=== PATIENT | female | born 1990 | race Two or more races ===

== ENCOUNTER 2024-06-17 12:45 | Inpatient (IN) | payer BC ==
[2024-06-17 13:51] VITALS: BMI 36.6
[2024-06-17] MEDS ORDERED: SODIUM CHLORIDE 100 ML IVPB ONE ×2 (13:54→18:31)
[2024-06-17] MEDS ORDERED: AMPICILLIN SODIUM 2 GM VIAL ONE (13:54)
[2024-06-17] MEDS: LACTATED RINGERS SOLUTION 1,000 ML IV SCH (14:05)
[2024-06-17] MEDS: AMPICILLIN - 2 GM in SODIUM CHLORIDE 100 ML IVPB ONE (14:10)
[2024-06-17 14:47] LABS: ABSOLUTE IMMATURE GRANULOCYTES 0.04 x10^3/uL (0.0-0.031); BASOPHILS # 0.02 x10^3/uL (0.01-0.08); EOSINOPHIL % 0.7 % (0.7-5.8); EOSINOPHILS # 0.06 x10^3/uL (0.04-0.36); HEMATOCRIT 38.5 % (34.1-44.9); HEMOGLOBIN 12.9 g/dL (11.2-15.7); MCHC 33.5 g/dl (32.2-35.5); MEAN PLT VOLUME 10.9 fl (9.4-12.3); MONOCYTE # 0.54 x10^3/uL (0.24-0.86); PLATELET COUNT 243 x10^3/uL (182-369); RDW 13.8 % (12.1-16.8); Reticulocyte % 2.09 % (0.5-1.7)
[2024-06-17 14:54] LABS: INR 0.91 (0.83-1.09)
[2024-06-17 14:55] LABS: EPI CELLS 13 /uL (0-25.1); HYALINE CASTS 0 /uL (0-3.1); URINE APPEARANCE CLEAR; URINE BACTERIA 1019 /uL (0-1359); URINE BILIRUBIN NEGATIVE (NEGATIVE); URINE COLOR YELLOW; URINE GLUCOSE (UA) NEGATIVE (NEGATIVE); URINE KETONE NEGATIVE (NEGATIVE); URINE LEUK ESTERASE NEGATIVE (NEGATIVE); URINE NITRITE NEGATIVE (NEGATIVE); URINE PROTEIN NEGATIVE (NEGATIVE); URINE RBC 15 /uL (0-23.9); URINE UROBILINOGEN 0.2 mg/dL (0.2-1.0); URINE WBC 17 /uL (0-25.8)
[2024-06-17 14:56] LABS: ACTIVATED PTT 27.2 SECONDS (25.2-36.5)
[2024-06-17 15:08] LABS: POTASSIUM 4.1 mmol/L (3.5-5.1)
[2024-06-17 15:10] LABS: BLOOD UREA NITROGEN 9.7 mg/dL (7-18); CALCIUM 10.3 mg/dL (8.5-10.1)
[2024-06-17 15:11] LABS: ALBUMIN 2.9 g/dl (3.4-5.0)
[2024-06-17 15:13] LABS: CREATININE 0.5 mg/dL (0.55-1.3); URIC ACID 5.9 mg/dL (2.6-7.2)
[2024-06-17 15:15] LABS: BILIRUBIN,TOTAL 0.4 mg/dL (0.2-1); TOT PROT 6.6 g/dl (6.4-8.2)
[2024-06-17] MEDS ORDERED: OXYTOCIN 30 UNITS in 0.9% NS 30 UNIT/500 ML INFUS.BAG IVPB ONE (15:38)
[2024-06-17] MEDS: OXYTOCIN 30 UNITS in 0.9% NS 30 UNIT/500 ML INFUS.BAG IVPB SCH (15:43)
[2024-06-17 16:10] LABS: CREATININE, URINE RANDOM 51.7 mg/dL (30-150)
[2024-06-17] MEDS ORDERED: NALOXONE HCL 0.4 MG/ML VIAL IVPUSH PRN (17:50)
[2024-06-17] MEDS ORDERED: FENTANYL/BUPIVACAINE/NS/PF - PCEA - 50 ML DISP.SYRIN EP ONE ×2 (17:58→22:45)
[2024-06-17] MEDS ORDERED: FENTANYL CITRATE/PF 50 MCG/ML VIAL ONE (18:04)
[2024-06-17] MEDS ORDERED: BUPIVACAINE HCL/PF 0.25% (2.5MG/ML) 10 ML VIAL ONE (18:04)
[2024-06-17] MEDS: FENTANYL/BUPIVACAINE/NS/PF - PCEA - 50 ML DISP.SYRIN EP SCH (18:21)
[2024-06-17] MEDS ORDERED: AMPICILLIN SODIUM 1 GM VIAL ONE ×2 (18:31→21:34)
[2024-06-17] MEDS: AMPICILLIN - 1 GM in SODIUM CHLORIDE 100 ML IVPB SCH (18:33)
[2024-06-18] MEDS ORDERED: FENTANYL CITRATE/PF 50 MCG/ML VIAL ONE (00:49)
[2024-06-18] MEDS ORDERED: LIDO 2%/EPI 1:200000 PRESRVFRE (20 ML SDVIAL) ONE (00:50)
[2024-06-18] MEDS ORDERED: METHYLERGONOVINE MALEATE 0.2 MG/1 ML AMP IM PRN (00:53)
[2024-06-18] MEDS ORDERED: ceFAZolin SODIUM 1 GM VIAL ONE (01:05)
[2024-06-18] MEDS ORDERED: DEXAMETHASONE SOD PHOSPHATE 4 MG/1 ML VIAL ONE (01:05)
[2024-06-18] MEDS ORDERED: morphine SULFATE/PF 1 MG/2 ML (2cc Syringe - QUVA) ONE (01:11)
[2024-06-18] MEDS ORDERED: OXYTOCIN 10 UNITS/ML VIAL ONE (01:11)
[2024-06-18] MEDS ORDERED: KETOROLAC TROMETHAMINE 30 MG/1 ML VIAL ONE (01:47)
[2024-06-18 02:06] LABS: CORD BASE EXCESS -4.3 mmol/L (0-2); CORD HCO3 21.8 mmHg (20-29); CORD PCO2 43.7 mmHg (30-78); CORD pH 7.316 (7.14-7.44)
[2024-06-18] MEDS: ELECTROLYTE-148 SOLN 1,000 ML IV SCH (02:11)
[2024-06-18] MEDS ORDERED: ONDANSETRON 4 MG/2 ML VIAL IVPUSH PRN (02:34)
[2024-06-18] MEDS: CEFAZOLIN SODIUM 2 GM in DEXTROSE 5%-WATER 100 ML IVPB SCH (03:20)
[2024-06-18] MEDS ORDERED: ACETAMINOPHEN INJECTION 100 ML ONE (04:09)
[2024-06-18] MEDS: ACETAMINOPHEN 1000 MG/100 ML BAG IVPB PRN (04:13)
[2024-06-18] MEDS ORDERED: OXYTOCIN 20 UNITS in 0.9% NS 20 UNIT/1,000 ML INFUS.BAG IV ONE (04:33)
[2024-06-18] MEDS: OXYTOCIN 20 UNITS in 0.9% NS 20 UNIT/1,000 ML INFUS.BAG IV SCH (04:45)
[2024-06-18] MEDS: IBUPROFEN 800 MG/8 ML IJ IVPB PRN (05:24)
[2024-06-18] MEDS: ENOXAPARIN NA (PORCINE) 40 MG/0.4 ML DISP.SYRIN SQ SCH (09:40)
[2024-06-18] MEDS ORDERED: oxyCODONE HCL 5 MG TABLET PO PRN (12:54)
[2024-06-18] MEDS: SIMETHICONE 80 MG TAB.CHEW (FP) PO PRN (22:03)
[2024-06-19] MEDS ORDERED: BISACODYL 10 MG SUPP.RECT RC PRN (00:54)
[2024-06-19 02:17] VITALS: RESP 18
[2024-06-19] MEDS: IBUPROFEN 600 MG TABLET (FP) PO PRN (05:52)
[2024-06-19 08:05] LABS: ABSOLUTE IMMATURE GRANULOCYTES 0.07 x10^3/uL (0.0-0.031); BASOPHILS # 0.03 x10^3/uL (0.01-0.08); EOSINOPHIL % 0.4 % (0.7-5.8); EOSINOPHILS # 0.04 x10^3/uL (0.04-0.36); HEMATOCRIT 27.1 % (34.1-44.9); HEMOGLOBIN 9.1 g/dL (11.2-15.7); MCHC 33.6 g/dl (32.2-35.5); MEAN CELL VOLUME 91.2 fl (79.4-94.8); MEAN PLT VOLUME 10.9 fl (9.4-12.3); MONOCYTE # 0.65 x10^3/uL (0.24-0.86); MONOCYTE % 5.8 % (4.7-12.5); PLATELET COUNT 184 x10^3/uL (182-369)
[2024-06-19] MEDS: ACETAMINOPHEN 325 MG TABLET (FP) PO PRN (09:04)
[2024-06-21 08:16] LABS: ABSOLUTE IMMATURE GRANULOCYTES 0.05 x10^3/uL (0.0-0.031); BASOPHILS # 0.03 x10^3/uL (0.01-0.08); EOSINOPHIL % 1.9 % (0.7-5.8); EOSINOPHILS # 0.18 x10^3/uL (0.04-0.36); HEMATOCRIT 29.9 % (34.1-44.9); MCHC 33.4 g/dl (32.2-35.5); MEAN CELL VOLUME 92.3 fl (79.4-94.8); MEAN PLT VOLUME 10.2 fl (9.4-12.3); MONOCYTE # 0.52 x10^3/uL (0.24-0.86); MONOCYTE % 5.5 % (4.7-12.5); PLATELET COUNT 224 x10^3/uL (182-369)
[2024-06-21 10:33] VITALS: BP 125/85; PULSE 92; TEMP 98.2
== END 2024-06-21 12:15 | disposition home or self-care (01) | DRG 788 ==
LOC: JLDR 12:45 → J3W 06-18 05:16
PROVIDERS: ADMIT Obstetrics & Gynecology; ATTEND Obstetrics & Gynecology
PROC: 10D00Z1 Extraction of Products of Conception, Low, Open Approach (ICD-10-PCS; principal; 2024-06-18)
DX: O75.89 Other specified complications of labor and delivery (principal); O62.1 Secondary uterine inertia; O24.429 Gestational diabetes mellitus in childbirth, unspecified control; O34.13 Maternal care for benign tumor of corpus uteri, third trimester; D25.9 Leiomyoma of uterus, unspecified; Z3A.39 39 weeks gestation of pregnancy; Z37.0 Single live birth
CPT/HCPCS: 36415; 36600; 80048; 80053; 81003; 82570; 82803; 82977; 83010; 84156; 84550; 85025; 85384; 85610; 85730; 86780; 86850; 86900; 86901; 88307-TC; J0131